=== PATIENT | female | born 1960 | race American Indian/Alaskan Native ===

== ENCOUNTER 2018-09-06 19:19 | Emergency (ER) | payer MEDICAID, MEDICARE ==
[2018-09-06 18:34] LABS: ANION GAP 10.9; CHLORIDE,CL 110 mmol/L (101-111); SODIUM,NA 138 mmol/L (135-145)
--- NOTE | 2018-09-06 19:19 | EDM.PDOC ---
Scribed by Juliana Luke 09/06/181918 for Raul Medeiros PA ED HPI GENERAL MEDICAL PROBLEM - General Chief Complaint: Neuro Symptoms/Deficits Stated Complaint: AMBULANCE / STROKE Time Seen by Provider: 09/06/18 18:13 Source of Information: Reports: Patient, EMS, EMS Notes Reviewed, RN, RN Notes Reviewed History Limitations: Reports: No Limitations - History of Present Illness INITIAL COMMENTS - FREE TEXT/NARRATIVE: Patient is a 57-year-old female with increased left sided weakness. She has left sided facial swelling. Patient does not know when symptoms started. Patient has a history of a previous CVA (unknown how long ago). The patient reports left sided weakness, but worse today. The patient does not know of any falls or trauma to face that would cause swelling. Patient reports she has been taking meds as prescribed. Onset: Today Location: Reports: Generalized Severity: Severe Improves with: Reports: None Worsens with: Reports: None Associated Symptoms: Reports: No Other Symptoms Past Medical History Cardiovascular History: Reports: High Cholesterol, Hypertension, Other (See Below) (Hypokalemia. Hypoalbuminemia. Hypocalcemia.) Respiratory History: Reports: Bronchitis, Recurrent, COPD Genitourinary History: Reports: Acute Renal Failure, Other (See Below) (chronic kidney disease) Musculoskeletal History: Reports: Other (See Below) (numbness and tingling of right leg. Bursitis right hip. Low back pain radiating to right leg. Chronic back pain. Edema.) Neurological History: Reports: Seizure Psychiatric History: Reports: Depression Endocrine/Metabolic History: Reports: Diabetes, Type II, Other (See Below) ( membranous glomerulonephritis.) Immunologic History: Reports: SLE - Past Surgical History GI Surgical History: Reports: Colonoscopy Female Surgical History: Reports: Section, Other (See Below) ( endometrial biopsy) ED ROS GENERAL - Review of Systems Review Of Systems: ROS reveals no pertinent complaints other than HPI. ED EXAM, NEURO - Physical Exam Exam: See Below Exam Limited By: No Limitations General Appearance: Other (left sided facial swelling) Eye Exam: Bilateral Eye: EOMI, Normal Inspection, PERRL Ears: Normal External Exam, Normal Canal, Hearing Grossly Normal, Normal TMs Nose: Normal Inspection, Normal Mucosa, No Blood Throat/Mouth: Normal Inspection, Normal Lips, Normal Teeth, Normal Gums, Normal Oropharynx, Normal Voice, No Airway Compromise Head Exam: Atraumatic, Normocephalic Neck: Other (left neck pain) Respiratory/Chest: No Respiratory Distress, Lungs Clear, Normal Breath Sounds, No Accessory Muscle Use, Chest Non-Tender Cardiovascular: Normal Peripheral Pulses, Regular Rate, Rhythm, No Edema, No Gallop, No JVD, No Murmur, No Rub GI/Abdominal: Normal Bowel Sounds, Soft, Non-Tender, No Organomegaly, No Distention, No Abnormal Bruit, No Mass (Female) Exam: Deferred Rectal (Female) Exam: Deferred Neurological: Other (increased left sided weakness.) Back Exam: Normal Inspection Extremities: Other (left upper extremity weakness. Left lower leg weakness no resistance against gravity) Skin Exam: Other (swelling of face) Course - Vital Signs Last Recorded V/S: Last Vital Signs Temp Pulse 65 09/06/18 18:30 Resp 22 H 09/06/18 18:30 BP 150/96 H 09/06/18 18:30 Pulse Ox 96 09/06/18 18:30 - Orders/Labs/Meds Orders: Active Orders 24 hr Category Date Time Status Blood Glucose Check, Bedside [RC] ONETIME Care 09/06/18 17:48 Active EKG Documentation Completion [RC] URGENT Care 09/06/18 17:48 Active Head wo Cont [CT] Urgent Exams 09/06/18 17:48 Taken UA W/MICROSCOPIC [URIN] Urgent Lab 09/06/18 18:10 Results Labs: Laboratory Tests 09/06/18 09/06/18 09/06/18 Range/Units 17:56 18:08 18:08 WBC 8.8 (5.0-10.0) 10^3/uL RBC 4.39 (4.2-5.4) 10^6/uL Hgb 12.9 (12.0-16.0) g/dL Hct 39.8 (37.0-47.0) % MCV 90.7 (80-100) fL MCH 29.4 (27.0-34.0) pg MCHC 32.4 L (33.0-35.0) g/dL Plt Count 222 (150-450) 10^3/uL Neut % (Auto) 50.6 (42.2-75.2) % Lymph % (Auto) 24.0 (20.5-50.1) % [place] % (Auto) 23.5 H (2-8) % Eos % (Auto) 1.7 (1.0-3.0) % Baso % (Auto) 0.2 (0.0-1.0) % Add Manual Diff Yes Neutrophils % (Manual) 58 (42-75) % Lymphocytes % (Manual) 25 (20-50) % Monocytes % (Manual) 14 H (2-8) % Eosinophils % (Manual) 2 (1-3) % Basophils % (Manual) 1 [place] Bodies 1+ slight PT 9.8 (9.0-12.0) SEC INR 1.0 (0.9-1.2) Sodium (135-145) mmol/L Potassium (3.6-5.0) mmol/L Chloride (101-111) mmol/L Carbon Dioxide (21.0-31.0) mmol/L Anion Gap BUN (7-18) mg/dL Creatinine (0.6-1.3) mg/dL Est Cr Clr Drug Dosing Estimated GFR (MDRD) BUN/Creatinine Ratio Glucose (74-105) mg/dL POC Glucose 83 (70-105) mg/dl Calcium (8.4-10.2) mg/dl Total Bilirubin (0.2-1.0) mg/dL AST (10-42) IU/L ALT (10-60) IU/L Alkaline Phosphatase (42-121) IU/L Troponin I (0.00-0.02) ng/ml Total Protein (6.7-8.2) g/dl Albumin (3.2-5.5) g/dl Globulin Albumin/Globulin Ratio Urine Color (YELLOW) Urine Appearance (CLEAR) Urine pH (5.0-9.0) Ur Specific [place] (1.005-1.030) Urine Protein (NEGATIVE) Urine Glucose (UA) (NEGATIVE) Urine Ketones (NEGATIVE) Urine Occult Blood (NEGATIVE) Urine Nitrite (NEGATIVE) Urine Bilirubin (NEGATIVE) Urine Urobilinogen (0.2-1.0) mg/dL Ur Leukocyte Esterase (NEGATIVE) 09/06/18 09/06/18 Range/Units 18:08 18:10 WBC (5.0-10.0) 10^3/uL RBC (4.2-5.4) 10^6/uL Hgb (12.0-16.0) g/dL Hct (37.0-47.0) % MCV (80-100) fL MCH (27.0-34.0) pg MCHC (33.0-35.0) g/dL Plt Count (150-450) 10^3/uL Neut % (Auto) (42.2-75.2) % Lymph % (Auto) (20.5-50.1) % [place] % (Auto) (2-8) % Eos % (Auto) (1.0-3.0) % Baso % (Auto) (0.0-1.0) % Add Manual Diff Neutrophils % (Manual) (42-75) % Lymphocytes % (Manual) (20-50) % Monocytes % (Manual) (2-8) % Eosinophils % (Manual) (1-3) % Basophils % (Manual) [place] Bodies PT (9.0-12.0) SEC INR (0.9-1.2) Sodium 138 (135-145) mmol/L Potassium 3.9 (3.6-5.0) mmol/L Chloride 110 (101-111) mmol/L Carbon Dioxide 21.0 (21.0-31.0) mmol/L Anion Gap 10.9 BUN 28 H (7-18) mg/dL Creatinine 2.5 H (0.6-1.3) mg/dL Est Cr Clr Drug Dosing TNP Estimated GFR (MDRD) 20 BUN/Creatinine Ratio 11.20 Glucose 91 (74-105) mg/dL POC Glucose (70-105) mg/dl Calcium 7.9 L (8.4-10.2) mg/dl Total Bilirubin 0.5 (0.2-1.0) mg/dL AST 17 (10-42) IU/L ALT 11 (10-60) IU/L Alkaline Phosphatase 65 (42-121) IU/L Troponin I < 0.02 (0.00-0.02) ng/ml Total Protein 7.4 (6.7-8.2) g/dl Albumin 3.3 (3.2-5.5) g/dl Globulin 4.1 Albumin/Globulin Ratio 0.80 Urine Color Yellow (YELLOW) Urine Appearance Clear (CLEAR) Urine pH 6.0 (5.0-9.0) Ur Specific [place] 1.025 (1.005-1.030) Urine Protein >=300 H (NEGATIVE) Urine Glucose (UA) Negative (NEGATIVE) Urine Ketones Negative (NEGATIVE) Urine Occult Blood Small H (NEGATIVE) Urine Nitrite Negative (NEGATIVE) Urine Bilirubin Negative (NEGATIVE) Urine Urobilinogen 0.2 (0.2-1.0) mg/dL Ur Leukocyte Esterase Negative (NEGATIVE) Departure - Departure Time of Disposition: 19:16 Disposition: DC/Tfer to Acute Hospital 02 Condition: Fair Clinical Impression: CVA (cerebral vascular accident) Qualifiers: CVA mechanism: unspecified Qualified Code(s): I63.9 - Cerebral infarction, unspecified - Discharge Information *PRESCRIPTION DRUG MONITORING PROGRAM REVIEWED*: Not Applicable *COPY OF PRESCRIPTION DRUG MONITORING REPORT IN PATIENT KATHERIN: Not Applicable Referrals: Lopez Christina [Ordering Only Provider] - Forms: Interfacility Transfer EMTALA Care Plan Goals: Discussed the examination, lab and CT results with Dr. Huerta (Hospitalist with [facility] in [place]). Dr. Huerta accepted the patient for continued evaluation and management. The patient will be transported by [facility]. - My Orders Last 24 Hours: My Active Orders 09/06/18 17:48 Blood Glucose Check, Bedside [RC] ONETIME EKG Documentation Completion [RC] URGENT Head wo Cont [CT] Urgent 09/06/18 18:10 UA W/MICROSCOPIC [URIN] Urgent - Assessment/Plan Last 24 Hours: My Active Orders 09/06/18 17:48 Blood Glucose Check, Bedside [RC] ONETIME EKG Documentation Completion [RC] URGENT Head wo Cont [CT] Urgent 09/06/18 18:10 UA W/MICROSCOPIC [URIN] Urgent I have read and agree with the documentation that has been completed regarding this visit. By signing this record, I attest that the documentation was completed in my physical presence and is an accurate record of the encounter.
== END 2018-09-06 19:45 ==
LOC: DL.ED 19:45
DX: I63.9 Cerebral infarction, unspecified (principal); I12.9 Hypertensive chronic kidney disease with stage 1 through stage 4 chronic kidney disease, or unspecified chronic kidney disease; N18.9 Chronic kidney disease, unspecified; E11.22 Type 2 diabetes mellitus with diabetic chronic kidney disease; F32.9 Major depressive disorder, single episode, unspecified; J44.9 Chronic obstructive pulmonary disease, unspecified; E78.00 Pure hypercholesterolemia, unspecified
CPT/HCPCS: 36415; 70450; 80053; 81001; 82962; 84484; 85025; 85610; 93005; 99285-25

== ENCOUNTER → 2018-10-18 | Outpatient (CLI) | payer MEDICARE, OTHER | LOC: DL.MRI 08:09 | PROVIDERS: ATTEND Nurse Practitioner Family | DX: G81.94 Hemiplegia, unspecified affecting left nondominant side (principal) | CPT/HCPCS: 70551 ==